=== PATIENT | male | born 1945 | race Caucasian/White ===

== ENCOUNTER 2019-08-28 08:36 | Emergency (ER) | payer MEDICARE ==
[~2019-08-28] VITALS: Ht 182.9 cm; Wt 109.0 kg
[2019-08-28 12:00] VITALS: BP 154/89
== END 2019-08-28 12:30 | disposition home or self-care (01) ==
LOC: ER 08:42
DX: H10.9 Unspecified conjunctivitis (principal); R51 Headache; I10 Essential (primary) hypertension; Z91.14 Patient's other noncompliance with medication regimen
CPT/HCPCS: 71045; 74176; 99284